=== PATIENT | female | born 1980 | race African-American/Black ===

== ENCOUNTER 2016-10-11 08:33 | Emergency (ER) | payer MEDICAID ==
[~2016-10-11] VITALS: Ht 160 cm; Wt 61.0 kg
[~2016-10-11 08:33] MED LIST: PRED20 PO
[2016-10-11 08:35] VITALS: BP 113/59; PULSE 98; RESP 16; TEMP 98.2; O2SAT 96
[2016-10-11] MEDS ORDERED: ZOFR4TAB3 SL (09:55)
[2016-10-11] MEDS ORDERED: NAPR500T PO (09:55)
--- NOTE | 2016-10-11 09:56 | PD ---
HPI Chief Complaint: Cold / Flu Symptoms Time Seen by Provider: 09:51 Travel History International Travel<30 days: No Contact w/Intl Traveler<30days: No Traveled to known affect area: No History of Present Illness HPI 36-year-old female presents to the emergency department for evaluation of headache for 2 days as well as associated nausea. She has reported history of headaches. She states she gets them quite frequently. She last similar headache was 2 weeks ago. It is not the worst headache of her life. It started and gradually worsened. Patient states she has a primary care physician. She has taken ibuprofen with improvement in headache. She has not taken any today. She currently rates headache 02/25. She does report some photophobia, but no photophobia. No vomiting. No abdominal pain. No weakness. No syncope. She has no chronic medical problems and takes no prescribed medications. She denies any chance of . Patient states she believes she is getting headaches due to her job and stress. Patient states it starts the right temporal area radiates throughout the forehead. PFSH Past Medical History Blood Disorders: No Cancer: No Cardiovascular Problems: No Diabetes: No (HX OF GESTATIONAL, NOT CURRENT) Endocrine: No Genitourinary: No Headaches: Yes Hepatitis: No Hiatal Hernia: No Immune Disorder: No Musculoskeletal: No Neurologic: No Psychiatric: No Reproductive: No Respiratory: Yes (SMOKES 5 LITTLE CIGARS EVERY 2 DAYS) Thyroid Disease: No ?: Unknown LMP: 09/19/16 : 1 Para: 1 Past Surgical History Abdominal Surgery: Yes ( 2002) AICD: No Section: Yes Joint Replacement: No Pacemaker: No Thoracic Surgery: Yes (BX OF LEFT BREAST 02/2014, L BREAST INFECTION SURGERY 2013) Social History Alcohol Use: No Tobacco Use: Yes (BLACK/MILDS PPD) Substance Use: Yes (MARIJUANA) Allergies-Medications (Allergen,Severity, Reaction): Coded Allergies: No Known Allergies (Verified , 10/11/16) Reported Meds & Prescriptions Reported Meds & Active Scripts Active Zofran Odt (Ondansetron Odt) 4 Mg Tab 4 Mg SL Q6HR PRN Naproxen 500 Mg Tab 500 Mg PO BID PRN Review of Systems Except as stated in HPI: all other systems reviewed are Neg Physical Exam Narrative GENERAL: Well-developed well-nourished female patient, ambulatory. Afebrile. SKIN: Warm and dry. HEAD: Normocephalic. Atraumatic. No temporal pain to palpation. EYES: No scleral icterus. No injection or drainage. PERRLA. EOM intact. ENT: Mucosa pink and moist. No erythema or exudates. No uvular edema. No uvular , palatal, or tonsillar deviation. Airway patent. Nasal turbinates appear normal without nasal blood, purulent drainage or septal hematoma. Bilateral tympanic membranes are clear without erythema or perforation. NECK: Supple, trachea midline. No JVD or lymphadenopathy. CARDIOVASCULAR: Regular rate and rhythm without murmurs, gallops, or rubs. RESPIRATORY: Breath sounds equal bilaterally. No accessory muscle use. Lungs sounds are clear to auscultation. GASTROINTESTINAL: Abdomen soft, non-tender, nondistended. MUSCULOSKELETAL: No cyanosis, or edema. Bilateral upper and lower extremity strength 5/5. All extremities are neurovascularly intact. BACK: Nontender without obvious deformity. No CVA tenderness. Data Data Last Documented VS Vital Signs Date Time Temp Pulse Resp B/P Pulse Ox O2 Delivery O2 Flow Rate FiO2 10/11/16 08:35 98.2 98 16 113/59 96 Room Air Orders Ketorolac Inj (Toradol Inj) (10/11/16 10:00) Ondansetron Odt (Zofran Odt) (10/11/16 10:00) MDM Medical Decision Making Medical Screen Exam Complete: Yes Emergency Medical Condition: Yes Medical Record Reviewed: Yes Differential Diagnosis Migraine headache versus tension type headache versus cluster headache Narrative Course 36-year-old female presents to the emergency department for evaluation of headache. She has similar headaches in the past. The last was 2 weeks ago. She states this is her typical headache. No thunderclap onset and is not the most severe headache of her life. She has no other associated complaints other than nausea and photophobia. Physical exam is reassuring. Patient appears well. Patient is given Toradol 60 mg IM and Zofran 4 mg ODT. She'll be discharged prescription for naproxen and Zofran. She is instructed to follow with her primary care physician. She is to return for any acute worsening of symptoms. Diagnosis Primary Impression: Tension-type headache, unspecified, not intractable Referrals: Primary Care Physician call for appointment Patient Instructions: Acute Headache (ED), General Instructions Additional Instructions: Take naproxen as directed as needed with food for pain. Take Zofran as directed as needed for nausea/vomiting. Follow-up with your primary care physician. Return to the emergency department for any acute worsening of symptoms. Med/Other Pt SpecificInfo: Prescription(s) given Scripts Ondansetron Odt (Zofran Odt)4 Mg Tab4 Mg SL Q6HR PRN (Nausea/Vomiting) #16 TAB Ref 0 Prov:Sumaya Watkins 10/11/16 Naproxen 500 Mg [id number] Mg PO BID PRN (PAIN SCALE 1 TO 10) #20 TAB Ref 0 Prov:Sumaya Watkins 10/11/16 Disposition: 01 DISCHARGE HOME Condition: Stable Sumaya Watkins Oct 11, 2016 09:56
[2016-10-11] MEDS ORDERED: KETOROLAC TROMETHAMINE 60 MG/2 ML (IM) VIAL IM ONE (10:00)
[2016-10-11] MEDS ORDERED: ONDANSETRON ODT 4 MG TAB PO ONE (10:00)
== END 2016-10-11 10:34 | disposition home or self-care (01) ==
LOC: NETRI 08:33
DX: G44.209 Tension-type headache, unspecified, not intractable (principal); R11.0 Nausea; Z72.0 Tobacco use
CPT/HCPCS: 99283